=== PATIENT | female | born 1975 | race Caucasian/White ===

== ENCOUNTER 2021-02-06 22:16 | Inpatient (IN) | payer BC, OTHER, SELFPAY ==
[2021-02-06 23:09] LABS: Urine Blood Trace-intact (Negative); Urine Glucose Negative (Negative); Urine Protein 2+ (Negative); Urine Specific Gravity 1.025 (1.005-1.030); Urine pH 6.5 (5.0-7.0)
[2021-02-06 23:17] LABS: Absolute Lymphocytes (CBC) 2.1 K/uL (0.7-4.9); Basophils % 0.4 % (0-1.3); Hematocrit 44.5 % (36.0-45.0); Lymphocytes % 18.6 % (15.3-44.8); MPV 8.8 fL (7.6-11.3); RBC Red Blood Cell Count 4.99 M/uL (3.86-4.86)
[2021-02-06 23:19] LABS: Protime INR 0.94
[2021-02-06 23:28] LABS: Barbiturates NEGATIVE (NEGATIVE); Benzodiazepines NEGATIVE (NEGATIVE); Cocaine NEGATIVE (NEGATIVE); METHAMPHETAM NEGATIVE (NEGATIVE); Methadone NEGATIVE (NEGATIVE); Opiates NEGATIVE (NEGATIVE); Phencyclidine NEGATIVE (NEGATIVE); THC Cannibis NEGATIVE (NEGATIVE)
[2021-02-06 23:54] LABS: Urine Specific Gravity/Preg 1.025 (1.005-1.030)
[2021-02-07 00:05] LABS: ALT/SGPT 20 U/L (12-78); AST/SGOT 15 U/L (15-37); Albumin 3.3 g/dL (3.4-5.0); Alkaline Phosphatase 75 U/L (45-117); BUN Blood Urea Nitrogen 9 mg/dL (7-18); Bicarbonate 25 mmol/L (21-32); Bilirubin Direct < 0.1 mg/dL (0-0.2); Bilirubin Total 0.3 mg/dL (0.2-1.0); Glucose Level 116 mg/dL (74-106); Magnesium 2.4 mg/dL (1.8-2.4); NT PRO-BNP 147 pg/mL (<125); Potassium 3.3 mmol/L (3.5-5.1); Protein, Total 7.3 g/dL (6.4-8.2); Sodium Level 142 mmol/L (136-145); Troponin (Emerg Dept Use Only) < 0.02 ng/mL (0.0-0.045)
[2021-02-07] MEDS ORDERED: POTASS/SODIUM PHOSPHATE 1 PKT POWD.PACK ONE (00:38)
[2021-02-07] MEDS ORDERED: METOPROLOL TARTRATE 5 MG/5 ML INJ IV ONE (01:24)
[2021-02-07] MEDS ORDERED: HYDRALAZINE HCL 20 MG/ML VIAL ONE ×2 (02:12→12:19)
--- NOTE | 2021-02-07 02:48 | ER ---
Nurse's Notes [facility] Name: Kevon Nevarez Age: 45 yrs Sex: Female : 1975 Arrival Date: 02/06/2021 Time: 22:20 Bed 7 Private MD: Diagnosis: Hypertensive Urgency;Paresthesia, Right Side of Body;Hypophosphatemia Presentation: 02/06 22:32 Chief complaint: Patient states: "My whole right side is numb since I woke up this lp1 morning"; Reports numbness, tingling feeling to right side that began at 0930; Denies chest pain, dizziness, vision changes. Coronavirus screen: At this time, the client does not indicate any symptoms associated with coronavirus-19. Ebola Screen: No symptoms or risks identified at this time. Initial Sepsis Screen: Does the patient meet any 2 criteria? No. Patient's initial sepsis screen is negative. Does the patient have a suspected source of infection? No. Patient's initial sepsis screen is negative. Risk Assessment: Do you want to hurt yourself or someone else? Patient reports no desire to harm self or others. Onset of symptoms was February 06, 2021 at 09:30. 22:32 Method Of Arrival: Ambulatory lp1 22:32 Acuity: ILIR 2 lp1 Triage Assessment: 02/07 04:54 General: Appears in no apparent distress. Behavior is calm, cooperative. 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 - Social history:: Smoking status: Patient denies any tobacco usage or history of. Screenin:37 Abuse screen: Denies threats or abuse. Denies injuries from another. Nutritional lp1 screening: No deficits noted. Tuberculosis screening: No symptoms or risk factors identified. Fall Risk None identified. Assessment: 22:50 General: Reports " I woke up with pins and needle feeling on my right side. I took some tw5 ibuprofen this morning, but it didn't help. I cannot go to work feeling like this." NIHSS 0. Pain: Denies pain. Neuro: Level of Consciousness is awake, alert, obeys commands, Oriented to person, place, time, situation, Drug Abuse Social Worker are equal bilaterally Moves all extremities. Gait is steady, Speech is normal, Facial symmetry appears normal, Pupils are PERRLA. Respiratory: Airway is patent Trachea midline Respiratory effort is even, unlabored, Respiratory pattern is regular. 22:50 Cardiovascular: Capillary refill < 3 seconds is brisk is sluggish in left in bilateral. tw5 23:31 Reassessment: Patient appears in no apparent distress at this time. No changes from tw5 previously documented assessment. " I almost feel like the tingling is subsiding". 02/07 00:42 Reassessment: Patient states feeling better. Patient states symptoms have improved. tw5 01:15 Reassessment: Reports numbness decreasing right side of body except right ear cc4 reportedly remains numb; BP 168/[address] Wright notified with Lopressor 5 mg given IVP as ordered. SR with no ectopy; VR 70's. 01:30 Reassessment: Resting quietly; BP 168/99. cc4 01:35 Reassessment: To CT via stretcher. cc4 01:50 Reassessment: Patient appears in no apparent distress at this time. Returned from CT cc4 via stretcher; Up \\T\\ ambulatory to BR with steady gait to void. 02:04 Reassessment: Resting quietly on stretcher; BP 169/116; Dr. Wright notified with cc4 hydralazine 10 mg given IVP as ordered. 02:30 Reassessment: Patient appears in no apparent distress at this time. BP decreasing cc4 152/100. 03:23 Derm: Skin is flushed. tw5 04:58 Reassessment: Patient states feeling better. Patient states symptoms have improved. tw5 General: Reports. Vital Signs: 02/06 22:22 BP 230 / 141; Pulse 94; Resp 20 S; Pulse Ox 98% on R/A; cc4 22:32 BP 230 / 141; Pulse 92; Resp 18; Temp 98; Pulse Ox 99% on R/A; Weight 74.84 kg (R); lp1 Height 5 ft. 6 in. (167.64 cm); Pain 0/10; 22:45 BP 196 / 117; Pulse 85; Resp 20 S; Pulse Ox 98% on R/A; cc4 22:50 BP 196 / 117; Pulse 95; Resp 28; Pulse Ox 99% on R/A; tw5 23:31 BP 203 / 115 LA; tw5 23:31 BP 182 / 110 RA; tw5 02/07 00:42 BP 156 / 101; Pulse 104; Resp 14; Pulse Ox 98% on R/A; tw5 01:25 BP 168 / 115; Pulse 73; Resp 18 S; Pulse Ox 97% on R/A; cc4 01:30 BP 168 / 99; Pulse 67; Resp 18 S; Pulse Ox 97% on R/A; cc4 02:04 BP 169 / 116; Pulse 73; Resp 20 S; Pulse Ox 99% on R/A; cc4 02:15 BP 173 / 104; Pulse 69; Resp 20 S; Pulse Ox 98% on R/A; cc4 02:30 BP 152 / 100; Pulse 70; Resp 18 S; Pulse Ox 98% on R/A; cc4 03:23 BP 173 / 102; Pulse 77; Resp 18; Pulse Ox 98% on R/A; tw5 04:58 BP 167 / 109; Pulse 88; Resp 18; Pulse Ox 100% on R/A; tw5 02/06 22:32 Body Mass Index 26.63 (74.84 kg, 167.64 cm) lp1 ED Course: 02/06 22:20 Patient arrived in ED. ja2 22:26 Kelly Cortes is Primary Nurse. tw5 22:28 Bradley Wright MD is Attending Physician. mh7 22:34 Triage completed. lp1 22:34 Arm band placed on. lp1 22:37 Patient has correct armband on for positive identification. Placed in gown. Call light lp1 in reach. monitoring tech on. Pulse ox on. NIBP on. 22:50 Door closed. Noise minimized. Lights dimmed. Moved to private room. Warm blanket given. tw5 Verbal reassurance given. 22:50 Initial lab(s) drawn, by me, sent to lab. Inserted saline lock: 20 gauge in right tw5 antecubital area, using aseptic technique. Blood collected. 22:56 XRAY Chest (1 view) In Process Unspecified. EDMS 22:57 Assisted to bathroom. tw5 22:57 EKG done, by ED staff, reviewed by Bradley Wright MD. tw5 23:36 CT Head C Spine In Process Unspecified. EDMS 02/07 01:33 CT Neck Angio Sent. cc4 01:33 CT Head Angio Sent. cc4 01:47 Patient moved back from CT. tw5 01:47 ambulating. tw5 01:47 Assisted to bathroom. tw5 02:01 CT Head Angio In Process Unspecified. EDMS 02:01 CT Neck Angio In Process Unspecified. EDMS 02:45 Claudine Velez MD is Hospitalizing Provider. 7 02:51 Awaiting bed assignment. tw5 03:22 COVID-19 SARS RT PCR (Document "Date of Onset" if Symptomatic) Sent. tw5 04:59 No provider procedures requiring assistance completed. Patient admitted, IV remains in tw5 place. Administered Medications: 00:42 Drug: Potassium \\T\\ Sodium Phosphates Packet 280 mg-160 mg-250 mg 1 packets Route: PO; tw5 03:23 Follow up: Response: No adverse reaction tw5 01:25 Drug: Lopressor (metoprolol) 5 mg Route: IVP; Site: right antecubital; cc4 01:30 Follow up: Response: No adverse reaction; Blood pressure is lowered cc4 02:04 Drug: hydrALAZINE 10 mg Route: IVP; Site: right antecubital; cc4 02:30 Follow up: Response: No adverse reaction; Blood pressure is lowered cc4 03:40 Drug: Benadryl (diphenhydrAMINE) 25 mg Route: IVP; Site: right antecubital; tw5 04:56 Follow up: Response: No adverse reaction tw5 Outcome: 02:47 Decision to Hospitalize by Provider. mh7 04:59 Admitted to ER Hold. Please see [facility] for further documentation. tw5 04:59 Condition: good 04:59 Instructed on the need for admit. 12:52 Patient left the ED. jd3 Signatures: Dispatcher [employer] EDMS Prudence Dougherty RN RN lp1 Broderick Rueda RN RN jd3 Bradely Wright MD MD 7 Toyin Fontenot [facility] Aga Borjas RN RN cc4 Kelly Cortes tw5
--- NOTE | 2021-02-07 02:48 | EDPHYS ---
Physician Documentation [facility] Name: Kevon Nevarez Age: 45 yrs Sex: Female : 1975 Arrival Date: 02/06/2021 Time: 22:20 Bed 7 Private MD: ED Physician Bradley Wright HPI: 02/06 23:02 This 45 yrs old Female presents to ER via Ambulatory with complaints of Numbness. mh7 23:02 The patient's problem is reported as paresthesias, in right upper extremity, in right mh7 lower extremity, in right side of face. Onset: The symptoms/episode began/occurred this morning, today, at 09:30. Duration: The episode is continuous. Context: the episode(s) was witnessed, by no one, symptoms became apparent upon waking, occurred at home, occurred while the patient was lying down, Possible contributing factors include: Unknown. The symptoms are alleviated by nothing. The symptoms are aggravated by nothing. Associated signs and symptoms: Pertinent negatives: abdominal pain, agitation, ataxia, blurred vision, chest pain, combativeness, confusion, diaphoresis, diarrhea, dizziness, headache, lightheadedness, nausea, palpitations, seizure, shortness of breath, vertigo, vomiting, weakness. Severity of symptoms: At their worst the symptoms were mild today, in the emergency department the symptoms are unchanged. Patient's baseline: Neuro: alert and fully oriented, Motor: no deficits, Ambulation: walks without assistance, Speech: normal. 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 - Social history:: Smoking status: Patient denies any tobacco usage or history of. ROS: 23:02 Constitutional: Negative for fever, chills, and weight loss, Eyes: Negative for injury, mh7 pain, redness, and discharge, ENT: Negative for injury, pain, and discharge, Neck: Negative for injury, pain, and swelling, Cardiovascular: Negative for chest pain, palpitations, and edema, Respiratory: Negative for shortness of breath, cough, wheezing, and pleuritic chest pain, Abdomen/GI: Negative for abdominal pain, nausea, vomiting, diarrhea, and constipation, Back: Negative for injury and pain, : Negative for injury, bleeding, discharge, and swelling, MS/Extremity: Negative for injury and deformity, Skin: Negative for injury, rash, and discoloration, Psych: Negative for depression, anxiety, suicide ideation, homicidal ideation, and hallucinations, Allergy/Immunology: Negative for hives, rash, and allergies, Endocrine: Negative for neck swelling, polydipsia, polyuria, polyphagia, and marked weight changes, Hematologic/Lymphatic: Negative for swollen nodes, abnormal bleeding, and unusual bruising. Exam: 23:02 Head/Face: Normocephalic, atraumatic. Eyes: Pupils equal round and reactive to light, mh7 extra-ocular motions intact. Lids and lashes normal. Conjunctiva and sclera are non-icteric and not injected. Cornea within normal limits. Periorbital areas with no swelling, redness, or edema. Neck: Trachea midline, no thyromegaly or masses palpated, and no cervical lymphadenopathy. Supple, full range of motion without nuchal rigidity, or vertebral point tenderness. No Meningismus. Chest/axilla: Normal chest wall appearance and motion. Nontender with no deformity. No lesions are appreciated. Cardiovascular: Regular rate and rhythm with a normal S1 and S2. No gallops, murmurs, or rubs. Normal PMI, no JVD. No pulse deficits. Respiratory: Lungs have equal breath sounds bilaterally, clear to auscultation and percussion. No rales, rhonchi or wheezes noted. No increased work of breathing, no retractions or nasal flaring. Abdomen/GI: Soft, non-tender, with normal bowel sounds. No distension or tympany. No guarding or rebound. No evidence of tenderness throughout. Back: No spinal tenderness. No costovertebral tenderness. Full range of motion. Skin: Warm, dry with normal turgor. Normal color with no rashes, no lesions, and no evidence of cellulitis. MS/ Extremity: Pulses equal, no cyanosis. Neurovascular intact. Full, normal range of motion. Psych: Awake, alert, with orientation to person, place and time. Behavior, mood, and affect are within normal limits. 23:02 Constitutional: The patient appears in no acute distress, alert, awake, anxious. 23:02 Neuro: Orientation: is normal, Mentation: is normal, Memory: is normal, Cranial nerves: grossly normal, Cerebellar function: is grossly normal, Motor: is normal, Sensation: is normal, Gait: is steady, at a normal pace, without difficulty, Deep tendon reflexes are normal, Babinski testing is normal, seizure activity, is not displayed by the patient, Abnormal movements: there are no abnormal movements. 02/07 02:47 Radiologist reports: No acute findings [facility] Vital Signs: 02/06 22:22 BP 230 / 141; Pulse 94; Resp 20 S; Pulse Ox 98% on R/A; cc4 22:32 BP 230 / 141; Pulse 92; Resp 18; Temp 98; Pulse Ox 99% on R/A; Weight 74.84 kg (R); lp1 Height 5 ft. 6 in. (167.64 cm); Pain 0/10; 22:45 BP 196 / 117; Pulse 85; Resp 20 S; Pulse Ox 98% on R/A; cc4 22:50 BP 196 / 117; Pulse 95; Resp 28; Pulse Ox 99% on R/A; tw5 23:31 BP 203 / 115 LA; tw5 23:31 BP 182 / 110 RA; tw5 02/07 00:42 BP 156 / 101; Pulse 104; Resp 14; Pulse Ox 98% on R/A; tw5 01:25 BP 168 / 115; Pulse 73; Resp 18 S; Pulse Ox 97% on R/A; cc4 01:30 BP 168 / 99; Pulse 67; Resp 18 S; Pulse Ox 97% on R/A; cc4 02:04 BP 169 / 116; Pulse 73; Resp 20 S; Pulse Ox 99% on R/A; cc4 02:15 BP 173 / 104; Pulse 69; Resp 20 S; Pulse Ox 98% on R/A; cc4 02:30 BP 152 / 100; Pulse 70; Resp 18 S; Pulse Ox 98% on R/A; cc4 03:23 BP 173 / 102; Pulse 77; Resp 18; Pulse Ox 98% on R/A; tw5 04:58 BP 167 / 109; Pulse 88; Resp 18; Pulse Ox 100% on R/A; tw5 02/06 22:32 Body Mass Index 26.63 (74.84 kg, 167.64 cm) lp1 MDM: 02:44 Differential diagnosis: CVA, TIA, metabolic disorder, drug effects. Data reviewed: [facility] vital signs, nurses notes, lab test result(s), cardiac enzymes, CBC, electrolytes, EKG, radiologic studies, CT scan, plain films. Data interpreted: Pulse oximetry: on room air is 98 %. Interpretation: normal. Counseling: I had a detailed discussion with the patient and/or guardian regarding: the historical points, exam findings, and any diagnostic results supporting the discharge/admit diagnosis, the presence of at least one elevated blood pressure reading (>120/80) during this emergency department visit, lab results, radiology results, the need for further work-up and treatment in the hospital. Response to treatment: the patient's symptoms have mildly improved after treatment. 02:47 Patient medically screened. [facility] 02/06 22:42 Order name: Basic Metabolic Panel; Complete Time: 00:05 [facility] 02/06 22:42 Order name: CBC with Diff; Complete Time: 23:37 [facility] 02/06 22:42 Order name: LFT's; Complete Time: 00:05 [facility] 02/06 22:42 Order name: Magnesium; Complete Time: 00:05 [facility] 02/06 22:42 Order name: NT PRO-BNP; Complete Time: 00:05 [facility] 02/06 22:42 Order name: PT-INR; Complete Time: 23:37 [facility] 02/06 22:42 Order name: Troponin (emerg Dept Use Only); Complete Time: 00:05 [facility] 02/06 22:42 Order name: UDS; Complete Time: 23:37 [facility] 02/06 22:42 Order name: ETOH Level; Complete Time: 23:59 [facility] 02/06 22:43 Order name: Phosphorus; Complete Time: 00:05 [facility] 02/06 23:09 Order name: Urine Dipstick-Ancillary; Complete Time: 23:12 EDMS 02/06 23:10 Order name: Urine --Ancillary (enter results); Complete Time: 23:54 ds4 02/07 02:51 Order name: COVID-19 SARS RT PCR (Document "Date of Onset" if Symptomatic) 1 02/07 02:52 Order name: SARS-COV-2 RT PCR [facility] 02/06 22:42 Order name: XRAY Chest (1 view) [facility] 02/06 22:43 Order name: CT Head C Spine [facility] 02/07 01:22 Order name: CT Head Angio [facility] 02/07 01:22 Order name: CT Neck Angio [facility] 02/07 05:57 Order name: Comprehensive Metabolic Panel [facility] 02/07 05:57 Order name: Phosphorus [facility] 02/07 05:57 Order name: Troponin I [facility] 02/07 05:57 Order name: Lipid Profile [facility] 02/07 05:57 Order name: T4 Free [facility] 02/07 05:57 Order name: Thyroid Stimulating Hormone [facility] 02/07 09:59 Order name: MRI [facility] 02/07 10:02 Order name: MRI [facility] 02/07 10:04 Order name: MRI [facility] 02/06 22:42 Order name: EKG; Complete Time: 22:43 [facility] 02/06 22:42 Order name: Cardiac monitoring; Complete Time: 22:58 [facility] 02/06 22:42 Order name: EKG - Nurse/Tech; Complete Time: 22:58 [facility] 02/06 22:42 Order name: IV Saline Lock; Complete Time: 22:58 [facility] 02/06 22:42 Order name: Labs collected and sent; Complete Time: 22:58 [facility] 02/06 22:42 Order name: O2 Per Protocol; Complete Time: 22:58 [facility] 02/06 22:42 Order name: O2 Sat Monitoring; Complete Time: 22:58 [facility] 02/06 22:42 Order name: Urine Dipstick-Ancillary (obtain specimen); Complete Time: 23:10 [facility] 02/06 22:42 Order name: Urine Test (obtain specimen); Complete Time: 23:09 [facility] 02/07 02:50 Order name: CONS Physician Consult [facility] Administered Medications: 00:42 Drug: Potassium \\T\\ Sodium Phosphates Packet 280 mg-160 mg-250 mg 1 packets Route: PO; tw5 03:23 Follow up: Response: No adverse reaction tw5 01:25 Drug: Lopressor (metoprolol) 5 mg Route: IVP; Site: right antecubital; cc4 01:30 Follow up: Response: No adverse reaction; Blood pressure is lowered cc4 02:04 Drug: hydrALAZINE 10 mg Route: IVP; Site: right antecubital; cc4 02:30 Follow up: Response: No adverse reaction; Blood pressure is lowered cc4 03:40 Drug: Benadryl (diphenhydrAMINE) 25 mg Route: IVP; Site: right antecubital; tw5 04:56 Follow up: Response: No adverse reaction tw5 Disposition Summary: 02/07/21 02:47 Hospitalization Ordered Hospitalization Status: Inpatient Admission [facility] Provider: Claudine Velez Pamela Condition: Stable mh7 Problem: new mh7 Symptoms: have improved mh7 Bed/Room Type: Standard [facility] Location: Telemetry/MedSurg (Inpatient)(02/07/21 10:58) [facility] Room Assignment: [facility](02/07/21 10:58) [facility] Diagnosis - Hypertensive Urgency mh7 - Paresthesia, Right Side of Body mh7 - Hypophosphatemia [facility] Forms: - Medication Reconciliation Form mh7 - SBAR form 7 Signatures: Dispatcher [employer] EDPrudence Tang RN RN lp1 Chelsey Kidd RN RN Kojo Oconnor RN RN ja1 Bradley Wright MD MD 7 Aga Borjas RN RN cc4 Kelly Cortes tw5 Corrections: (The following items were deleted from the chart) 03:07 02:47 Telemetry/MedSurg (Inpatient) 7 cg 03:07 02:47 mh7 cg 10:58 03:07 [facility] ER HOLD cg ja1 10:58 03:07 ERHOLD- cg ja1
[2021-02-07] MEDS ORDERED: DIPHENHYDRAMINE 50 MG/ML VIAL ONE (03:37)
--- NOTE | 2021-02-07 03:58 | P.HP ---
Certification for Inpatient Patient admitted to: Inpatient With expected LOS: <2 Midnights Patient will require the following post-hospital care: None Practitioner: I am a practitioner with admitting privileges, knowledge of patient current condition, hospital course, and medical plan of care. Services: Services provided to patient in accordance with Admission requirements found in Title 42 Section 412.3 of the Code of Federal Regulations Patient History Date of Service: 02/07/21 Primary Care Provider: Ching Reason for admission: hypertensive emergency History of Present Illness: Ms. Nevarez is a 45 yo F with HTN who presents with right sided numbness (face, neck, arm, leg) when she woke up at 9:30pm. She says she almost felt walking to the bathroom. She reports nausea and blurry vision. Denies headache, vomiting, chest pain. WBC 11.5 K 3.3 Phos 2.0 BNP 147. BP was 230/141 upon arrival. - Past Medical/Surgical History Diabetic: No -: HTN -: appendectomy -: rhinoplasty - Family History Father -: Hypertension - Social History Smoking Status: Never smoker Alcohol use: Yes CD- Drugs: No Caffeine use: No Place of Residence: Home Review of Systems 10-point ROS is otherwise unremarkable General: Unremarkable Eyes: Vision Change ENT: Unremarkable Respiratory: Unremarkable Cardiovascular: Unremarkable Gastrointestinal: Nausea Genitourinary: Unremarkable Musculoskeletal: Unremarkable Integumentary: Unremarkable Neurological: Numbness Lymphatics: Unremarkable Physical Examination - Physical Exam General: Alert, In no apparent distress HEENT: Atraumatic, PERRLA, Mucous membr. moist/pink, EOMI, Sclerae nonicteric Neck: Supple, 2+ carotid pulse no bruit, No LAD, Without JVD or thyroid abnormality Respiratory: Clear to auscultation bilaterally, Normal air movement Cardiovascular: Regular rate/rhythm, Normal S1 S2 Gastrointestinal: Normal bowel sounds, No tenderness Musculoskeletal: No tenderness Integumentary: No rashes Neurological: Normal gait, Normal speech, Normal strength at 5/5 x4 extr, Normal tone, Normal affect, Abnormal sensation Lymphatics: No axilla or inguinal lymphadenopathy - Studies Laboratory Data (last 24 hrs) 02/06/21 23:27: Sodium 142, Potassium 3.3 L, BUN 9, Creatinine 0.70, Glucose 116 H, Phosphorus 2.0 L, Magnesium 2.4, Total Bilirubin 0.3, AST 15, ALT 20, Alkaline Phosphatase 75 02/06/21 22:50: PT 10.8, INR 0.94 02/06/21 22:50: WBC 11.50 H, Hgb 15.2 H, Hct 44.5, Plt Count 275 Assessment and Plan - Problems (Diagnosis) (1) Hypertensive emergency Current Visit: Yes Status: Acute (2) Right sided numbness Current Visit: Yes Status: Acute - Plan neurology consulted MRI in the AM continue IV hydralazine, reconcile and continue home dose of enalapril daily ASA, folic acid, statin lipid and thyroid panel pending electrolyte replacement trend troponins DVT ppx Discharge Plan: Home Plan to discharge in: 24 Hours - Advance Directives Does patient have a Living Will: No Does patient have a Durable POA for Healthcare: No - Code Status/Comfort Care Code Status Assessed: Yes (full code ) Critical Care: No Time Spent Managing Pts Care (In Minutes): 70
[2021-02-07] MEDS ORDERED: ACETAMINOPHEN 500 MG TAB PO PRN (05:05)
[2021-02-07] MEDS ORDERED: ONDANSETRON 4 MG/2 ML VIAL IV PRN (05:05)
[2021-02-07 05:13] VITALS: BMI 26.3
[2021-02-07 05:57] LABS: ALT/SGPT 19 U/L (12-78); AST/SGOT 14 U/L (15-37); Albumin 3.3 g/dL (3.4-5.0); Alkaline Phosphatase 76 U/L (45-117); BUN Blood Urea Nitrogen 6 mg/dL (7-18); Bicarbonate 24 mmol/L (21-32); Bilirubin Total 0.5 mg/dL (0.2-1.0); Glucose Level 97 mg/dL (74-106); HDL Cholesterol 55 mg/dL (40-60); LDL Cholesterol, Calculated 91 (<130); Phosphorus 2.1 mg/dL (2.5-4.9); Potassium 3.2 mmol/L (3.5-5.1); Protein, Total 7.2 g/dL (6.4-8.2); Sodium Level 142 mmol/L (136-145); Troponin I < 0.02 ng/mL (0.0-0.045)
[2021-02-07] MEDS ORDERED: ASPIRIN EC 81 MG TAB PO ONE (08:48)
[2021-02-07] MEDS ORDERED: ENOXAPARIN 40 MG/0.4 ML SQ ONE (08:48)
[2021-02-07] MEDS ORDERED: ENALAPRIL 2.5 MG TAB ONE (08:48)
[2021-02-07] MEDS ORDERED: FOLIC ACID 1 MG TABLET ONE (08:48)
[2021-02-07] MEDS: ENALAPRIL 10 MG TAB PO SCH (09:00)
[2021-02-07] MEDS: ENOXAPARIN 40 MG/0.4 ML SQ SCH (09:00)
[2021-02-07] MEDS: ASPIRIN EC 81 MG TAB PO SCH (09:00)
[2021-02-07] MEDS: FOLIC ACID 1 MG TABLET PO SCH (09:00)
--- NOTE | 2021-02-07 09:58 | RAD REPORT ---
EXAM DESCRIPTION: MRI - MRA Head Wo Cont - 02/07/2021 8:52 am CLINICAL HISTORY: Right-sided weakness, stroke-like symptoms COMPARISON: CT head February 06 TECHNIQUE: Axial and coronal 3D [id number] image acquisition was performed. 3D rotational images were generated with source and reconstruction images reviewed. Horizontal and vertical axis rotation al views generated using MIP protocol. FINDINGS: No aneurysm or vascular malformation identified. Mild tortuosity of the distal vertebral a rteries are noted with no stenosis or dissection. No focal basilar finding. The distal internal carot id arteries show no dissection or significant atherosclerotic disease. The anterior and middle cerebral artery distribution show no named branch occlusion, vasculitis or si gnificant atherosclerotic finding. Patient has large bilateral posterior communicating arteries as a normal anatomic variant. This supplies all or most of the bilateral posterior cerebral artery circula tion. No significant posterior cerebral artery finding. IMPRESSION: As detailed above, MRA Head imaging shows no significant finding.
--- NOTE | 2021-02-07 10:01 | RAD REPORT ---
EXAM DESCRIPTION: MRI - Brain W/Wo Cont - 02/07/2021 9:24 am CLINICAL HISTORY: R side numbness COMPARISON: MRA Head Wo Cont dated 02/07/2021; MRA Neck W/Wo Cont dated 02/07/2021 TECHNIQUE: Sagittal and axial T1-weighted images were obtained. Axial PD/heavily T2-weighted and T2- FLAIR images were obtained along with axial DWI/ADC mapping sequences. Coronal heavily T2 weighted s equence obtained. Axial and coronal post-contrast T1-weighted images were also obtained. A 17 ml Mul tihance contrast following utilized. FINDINGS: No intracranial hemorrhage is present. No mass, edema or shift of midline structures. In t he posterior left mauricio there is a 7 millimeter area of abnormal diffusion signal with corresponding d iminished signal on ADC mapping. This is a subacute nonhemorrhagic infarction. No other brainstem, ba caleb ganglia or thalamus diffusion abnormality seen. Cerebral and cerebellar hemispheres are clear of any acute disease. Patient has no underlying atrophy or chronic ischemic change. There is no edema or shift of midline structures. No extra-axial fluid collections. Morley-matter/white matter junction is preserved. Signal voids are seen as a normal finding in the major intracranial vessels. Post-contrast images show normal enhancement. No dural thickening. Mastoid air cells are clear. No air-fluid level in the paranasal sinuses. IMPRESSION: Subacute nonhemorrhagic 7 millimeter sized infarction in the posterior left mauricio.
--- NOTE | 2021-02-07 10:03 | RAD REPORT ---
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 Coronal imaging plane acquisition u tilized. A 17 MultiHance contrast volume was utilized. Coronal reformatted images were generated and reviewed. Vertical axis 3D rotational projections obtained using maximum intensity projection protoco l. FINDINGS: Aortic arch is 3 vessel configuration with no origins stenosis. No vertebral artery stenos is at the origin. There is tortuosity of the proximal left vertebral artery. Codominant vertebral art eries show mild tortuosity but no stenosis or dissection. Tortuosity is more pronounced near the vert ebrobasilar junction. Bilateral common carotid and internal carotid arteries show no significant finding. IMPRESSION: Unremarkable MRA neck examination.
[2021-02-07] MEDS: HYDRALAZINE HCL 20 MG/ML VIAL IV PRN ×2 (12:37→16:09)
--- NOTE | 2021-02-07 14:20 | RAD REPORT ---
EXAM DESCRIPTION: CT - CTHCSPWOC - 02/07/2021 6:40 am CLINICAL HISTORY: 45 years, Female, NUMBNESS/TINGLING COMPARISON: None. FINDINGS: Multiple transaxial tomograms of the brain were obtained from the base of the skull to the vertex without contrast. 2-D multiplanar reformats and the coronal and sagittal plane were performed and reviewed. This exam was performed according to our departmental dose-optimization protocol, which includes auto mated exposure control, adjustment of the mA and/or kV according to patient size and/or use of iterat sondra reconstruction technique. CT head: Brain parenchyma as well as the zavala and white matter differentiation demonstrate to be unre markable. There is no midline shift and/or mass effect. There is no evidence for acute hemorrhage and /or infarction. Lateral ventricles and cisterns displace normal appearance. No intra or extra axi al fluid collections were seen. The calvarium is intact with no evidence for fracture. The visualized portions of the paranasal sinuses and orbits demonstrate to be clear. CT C-spine: The alignment, vertebral body heights, and disc spaces are normal. There is no evidence of fracture or subluxation. There is very minimal anterior spondylosis at C6/C7 with very minimal de generative disc disease.. The spinal canal demonstrate no evidence for significant stenosis. Neural f oramina demonstrate to be unremarkable. The uncovertebral joints demonstrate to be normal. There is n o prevertebral soft tissue swelling. The visualized portions of the lung apices demonstrate to be u nremarkable. Sagittal coronal reformatted images demonstrate no subluxation or bony abnormalities. IMPRESSION: No acute intracranial abnormalities noted. No evidence for fracture or subluxation of the cervical spine. Very minimal anterior spondylosis and very minimal degenerative disc disease C6/C7. Electronically signed by: Mendoza Quintero MD 02/06/2021 11:49 PM MANUFACTURING TEAM LEADER Due to temporary technical issues with the PACS/Fluency reporting system, reports are being signed by the in house radiologist without review as a courtesy to ensure prompt reporting. The interpreting r adiologist is fully responsible for the content of the report.
--- NOTE | 2021-02-07 14:21 | RAD REPORT ---
EXAM DESCRIPTION: CT - Head angio - 02/07/2021 6:41 am CLINICAL HISTORY: 45 years Female NUMBNESS. Tingling along right side of body all day. TECHNIQUE: Following dynamic intravenous nonionic contrast infusion, multiple axial helical CT image s with multiplanar reconstructions were obtained through the head and neck. Coronal and sagittal MIP images were performed. The CT study is performed according to ALARA (as low as reasonably achievable) or ALARA/IMAGE GENTLY, with automatic adjustment of mA and/or kV according to patient size. Performed on: 02/07/2021 at 1:48 AM COMPARISON: CT head performed on 02/06/2021 FINDINGS: CTA NECK: AORTA: The aortic arch is well imaged and demonstrates conventional branching. The origins of the left sub clavian artery, left common carotid artery and innominate artery are patent. VERTEBRAL ARTERIES: The LEFT vertebral artery is normal in caliber and contour without evidence of dissection or signific ant stenosis. The RIGHT vertebral artery is normal in caliber and contour without evidence of dissection or signifi cant stenosis. CAROTID ARTERIES: The LEFT common carotid artery is unremarkable. There is no evidence of stenosis, dissection or occlu nicole The carotid bulb demonstrates no significant plaque. The LEFT internal carotid artery is elvia l in caliber and contour without evidence of significant stenosis, dissection or occlusion. The LEFT external carotid artery is unremarkable. The RIGHT common carotid artery is unremarkable. There is no evidence of stenosis, dissection or occl usion. The carotid bulb demonstrates no significant plaque. The RIGHT internal carotid artery is un remarkable. There is no evidence of stenosis, dissection or occlusion. The RIGHT external carotid art venus is unremarkable. CTA HEAD: LEFT: INTERNAL CAROTID ARTERY: The distal internal carotid artery is unremarkable. ANTERIOR CEREBRAL ARTERY: The A1 segment is normal in caliber and contour. The A2 segment is normal in caliber and contour. The region of the anterior communicating artery is unremarkable. MIDDLE CEREBRAL ARTERY: The M1 segment is normal in caliber and contour. The M2 branches are normal in caliber and contour. POSTERIOR CEREBRAL ARTERY: The P1 segment is hypoplastic. There is a origin of the left speech professor ior cerebral artery. The P2 segment is normal in caliber and contour. VERTEBRAL ARTERY: The intradural left vertebral artery is normal in caliber and contour. RIGHT: INTERNAL CAROTID ARTERY: The distal internal carotid artery is unremarkable. ANTERIOR CEREBRAL ARTERY: The A1 segment is normal in caliber and contour. The A2 segment is normal in caliber and contour. MIDDLE CEREBRAL ARTERY: The M1 segment is normal in caliber and contour. The M2 branches are normal in caliber and contour. POSTERIOR CEREBRAL ARTERY: The P1 segment is hypoplastic. There is a origin of the right poste rior cerebral artery. The P2 segment is normal in caliber and contour. VERTEBRAL ARTERY: The intradural right vertebral artery is normal in caliber and contour. BASILAR ARTERY: The basilar artery is normal in caliber and contour. DURAL VENOUS SINUSES: The dural venous sinuses are patent. NON-ANGIOGRAPHIC FINDINGS: The lung apices are clear. The thyroid gland is unremarkable. No acute osseous abnormalities are iden tified. There are periapical cysts and/or abscesses involving the left maxillary lateral incisor and right maxillary first molar. The paranasal sinuses and mastoid air cells are clear. The middle air ca vities are clear. The orbital contents are unremarkable. IMPRESSION: CTA NECK: 1. Normal CTA of the neck. There is no evidence of stenosis as per the NASCET criteria. CTA HEAD: 1. There are origins of both posterior cerebral arteries with hypoplasia of the P1 segments. 2. Otherwise, normal intracranial CTA. There is no evidence of large vessel occlusion, significant st enosis, aneurysm or other vascular malformation. 3. Periapical cysts and/or abscesses involving the left maxillary lateral incisor and right maxillary first molar. Correlate clinically. These critical findings were discussed with Dr. Wright on 02/07/2021 at 2:19 AM central time. Electronically signed by: Barby Ashton DO 02/07/2021 2:26 AM LAWN CARE SPECIALIST Due to temporary technical issues with the PACS/Fluency reporting system, reports are being signed by the in house radiologist without review as a courtesy to ensure prompt reporting. The interpreting r adiologist is fully responsible for the content of the report.
--- NOTE | 2021-02-07 14:40 | RAD REPORT ---
EXAM DESCRIPTION: RAD - Chest Single View - 02/06/2021 10:56 pm CLINICAL HISTORY: 5 years Female, Hypertensive COMPARISON: None FINDINGS: No focal lung consolidation. No pleural effusion. No pneumothorax. Cardiomediastinal silhouette is within normal limits. No acute osseous abnormality. IMPRESSION: No acute cardiopulmonary disease. Electronically signed by: Herbert Henry DO 02/06/2021 11:35 PM RETAIL MANAGEMENT TRAINEE Due to temporary technical issues with the PACS/Fluency reporting system, reports are being signed by the in house radiologist without review as a courtesy to ensure prompt reporting. The interpreting r adiologist is fully responsible for the content of the report.
--- NOTE | 2021-02-07 18:41 | P.PN ---
Subjective Date of Service: 02/07/21 Patient blood pressure better controlled. MRI is pending Review of Systems 10-point ROS is otherwise unremarkable Physical Examination - Vital Signs Temperature: 98.1 F Blood Pressure: 159/90 Pulse: 94 Respirations: 16 Pulse Ox (%): 95 - Physical Exam General: Alert, In no apparent distress, Oriented x3 HEENT: Atraumatic, PERRLA, EOMI Neck: Supple, JVD not distended Respiratory: Clear to auscultation bilaterally, Normal air movement Cardiovascular: Regular rate/rhythm, Normal S1 S2 Gastrointestinal: Normal bowel sounds, No tenderness Musculoskeletal: No tenderness Integumentary: No rashes Neurological: Normal speech, Normal tone, Normal affect, Abnormal sensation Lymphatics: No axilla or inguinal lymphadenopathy - Studies Laboratory Data (last 24 hrs) 02/06/21 23:27: Sodium 142, Potassium 3.3 L, BUN 9, Creatinine 0.70, Glucose 116 H, Phosphorus 2.0 L, Magnesium 2.4, Total Bilirubin 0.3, AST 15, ALT 20, Alkaline Phosphatase 75 02/06/21 22:50: PT 10.8, INR 0.94 02/06/21 22:50: WBC 11.50 H, Hgb 15.2 H, Hct 44.5, Plt Count 275 Medications List Reviewed: Yes Assessment & Plan - Problems (Diagnosis) (1) Hypertensive emergency Current Visit: Yes Status: Acute (2) Right sided numbness Current Visit: Yes Status: Acute - Plan 1. Strength is appropriate so no need for physical therapy 2. Speech is appropriate and swallowing is appropriate so no need for speech therapy 3. Anti-platelet therapy and statin therapy; pending MRI results 4. Lipid profile in the morning 5. MRI of the brain/echocardiogram/carotid Doppler are pending 6. Physically patient is doing well and may benefit more from outpatient physical therapy and inpatient rehab 7. Neurology consultation appreciated 8. Permissive hypertension and gradual blood pressure control 9. Neuro checks every 4 hr 10. GI and DVT prophylaxis Discharge Plan: Home Plan to discharge in: Greater than 2 days - Advance Directives Does patient have a Living Will: No Does patient have a Durable POA for Healthcare: No - Code Status/Comfort Care Code Status Assessed: Yes Code Status: Full Code Critical Care: No Time Spent Managing PTS Care (In Minutes): 45
[2021-02-07] MEDS ORDERED: METOPROLOL TARTRATE 5 MG/5 ML INJ IV STA (18:44)
[2021-02-07] MEDS: ATORVASTATIN 40 MG TAB PO SCH (20:54)
[2021-02-07] MEDS ORDERED: POTASSIUM 25 MEQ EFFERV TAB PO ONE (20:55)
[2021-02-08 07:16] LABS: Absolute Lymphocytes (CBC) 2.9 K/uL (0.7-4.9); Basophils % 0.5 % (0-1.3); Hematocrit 42.2 % (36.0-45.0); Lymphocytes % 33.8 % (15.3-44.8); MPV 8.5 fL (7.6-11.3); RBC Red Blood Cell Count 4.68 M/uL (3.86-4.86)
[2021-02-08 07:35] LABS: ALT/SGPT 19 U/L (12-78); AST/SGOT 15 U/L (15-37); Albumin 3.3 g/dL (3.4-5.0); Alkaline Phosphatase 69 U/L (45-117); BUN Blood Urea Nitrogen 16 mg/dL (7-18); Bicarbonate 25 mmol/L (21-32); Bilirubin Total 0.6 mg/dL (0.2-1.0); Glucose Level 103 mg/dL (74-106); Magnesium 2.2 mg/dL (1.8-2.4); Phosphorus 2.2 mg/dL (2.5-4.9); Potassium 3.6 mmol/L (3.5-5.1); Protein, Total 6.9 g/dL (6.4-8.2); Sodium Level 143 mmol/L (136-145)
[2021-02-08] MEDS: FOLIC ACID 1 MG TABLET PO SCH (08:32)
[2021-02-08] MEDS: ASPIRIN EC 81 MG TAB PO SCH (08:32)
[2021-02-08] MEDS: ENALAPRIL 10 MG TAB PO SCH (08:33)
[2021-02-08] MEDS: ENOXAPARIN 40 MG/0.4 ML SQ SCH (08:33)
[2021-02-08] MEDS: HYDRALAZINE HCL 20 MG/ML VIAL IV PRN (09:43)
[2021-02-08] MEDS ORDERED: AMLODIPINE 10 MG TAB PO ONE (10:34)
--- NOTE | 2021-02-08 11:54 | EKG ---
Test Date: 2021-02-07 Test Time: 21:43:59 Electric Train Driver: WALLACE MEASUREMENT RESULTS: Intervals: Rate: 88 [place]: 136 QRSD: 74 QT: 372 QTc: 450 [place]: P: 39 AZ: 136 QRS: 27 T: 201 INTERPRETIVE STATEMENTS: Normal sinus rhythm Septal infarct, age undetermined T wave abnormality, consider lateral ischemia Abnormal ECG Compared to ECG 02/06/2021 22:45:01 Myocardial infarct finding now present T-wave abnormality now present Atrial abnormality no longer present Left ventricular hypertrophy no longer present ST (T wave) deviation no longer present Possible ischemia still present Electronically Signed On 02-08-21 11:53:30 LAUNDRY OR [employer]Y CLEANERS COUNTER CLERK by Levi Styles
[2021-02-08] MEDS ORDERED: POTASSIUM CL SA 10 MEQ TAB PO ONE (12:00)
[2021-02-08] MEDS: LORAZEPAM 0.5 MG TABLET PO ONE ×3 (12:47→13:31)
[2021-02-08] MEDS ORDERED: ENALAPRILAT 1.25 MG/ML VIAL IV ONE (12:47)
[2021-02-08] MEDS ORDERED: ENALAPRILAT 1.25 MG/ML VIAL IV PRN (14:57)
--- NOTE | 2021-02-08 19:27 | CON ---
Reason For Consultation: Consultation called because of stroke. History Of Present Illness: Ms. Nevarez is a 45-year-old right-handed patient with uncont rolled hypertension for at least 30 years, who comes with right face, arm and leg numbness. She woke up around 9:30 p.m. on February 06 with her symptoms and had some difficulty with walking due to p oor sensory perception. She was trying to get to the bathroom. She did have nausea, blurred vision, but no shortness of breath. No cough. No chest pain and no weakness. She did not immediately seek medical attention, but eventually came to [facility] on the 06 of February, but at her ar rival time at [facility] was 2220. When she woke up in the morning, it is 9:30 in the morni ng that is a.m. and came to the hospital on 0, well out of the window for any acute treatment for stroke. Her head CT and cervical spine CT scan showed no acute ischemic or hemorrhagic change. No f ractures. There was minimal spondylosis and degenerative disk disease at C6-C7. The patient's defic its persisted and she was admitted for stroke workup. Brain MRI done the following day identified a 7 mm subacute infarct, nonhemorrhagic in the left posterior mauricio, which may explain the patient's rig ht-sided deficits of sensation. Neck MRA is unremarkable. Brain MRA also unremarkable as were her C T angiogram studies of the head and neck. The P1 segment on the left was hypoplastic. The P2 segmen t was of normal caliber. She had blood pressures ranging up to systolics in the 200s range, the high est she was 230 actually and diastolic 141. She is gingerly lowered in terms of her blood pressure n umbers ranging systolics in the 150s to 180s and most recently 169/94. Her deficits have fluctuated a bit but has not resolved. Her blood work showed a normal complete blood count with differential. Basic metabolic panel remarkable for hypokalemia, which is initially down to 3.2, now 3.6 uncorrected . Kidney function otherwise normal. Phosphorus was low at 3.2. Liver function studies normal. LDL cholesterol 91, HDL cholesterol 55. TSH normal. Free T4 normal. Urinalysis showed a trace of bloo d, 3+ protein. Her toxicology screen was negative and her COVID-19 test was negative. She was not t aking aspirin daily and is now placed on aspirin 81 mg daily, folic acid 1 mg daily, Lipitor 40 mg at bedtime. She is on Norvasc 10 mg daily, Cozaar 50 mg twice daily, and hydrochlorothiazide/losartan 50/12.5 daily. She has DVT prophylaxis with Lovenox 40 mg subcutaneously daily. Past Medical History: As noted. Past Surgical History: Appendectomy, rhinoplasty. Family History: Heart attacks in father and paternal grandfather along with hypertension in father. Social History: She was actually drinking alcohol and around folks who were smoking at th e time of the event. She denies smoking herself. No IV drug use. Allergies: CODEINE. Review of Systems: As noted. No recent fevers, chills, nausea, vomiting, myalgias, arthralgias, headaches, weight villagran e, rash, or psychiatric issues. No gastrointestinal or genitourinary issues. Physical Examination: Vital Signs: Blood pressure currently 169/94, pulse 87, respiratory rate 16, temperature 98.1, oxyge n saturation 97%. Weight 163 pounds, height 5 feet 6 inches, BMI 26. General: Ms. Nevarez is resting comfortably. She is in no acute distress. HEENT: She is normocephalic, atraumatic. Sclerae anicteric. Oropharynx pink and moist. Neck: Supple. Chest: Clear. Heart: Regular. Extremities: Show no clubbing, cyanosis, or edema. Neurologic: She is alert and oriented to person, place, time, and situation. She has no expressive or receptive aphasias. Cranial nerves show decrease to light touch in the right face. Her sensation in the right upper and lower extremity decreased compared to the left side. Otherwise, full strengt h in upper and lower extremities. Intact coordination of lower extremities. She does have slight di fficulty with tandem gait, tendency to drift to the right with ambulation. Assessment: Ms. Nevarez is a 45-year-old patient with a left posterior brainstem stroke, likely aff ecting sensory fibers producing her deficits of face, arm and leg numbness on the right side. She martinez s uncontrolled hypertension as the major risk factor. She was not taking an aspirin. Plan: 1.Aspirin 81 mg daily. Also for dyslipidemia we will target LDL of less than 70 with Lipitor 40 mg daily. 2.Folic acid 1 mg daily. 3.Very aggressive management of hypertension over the next few weeks. She should try to lower her b lood pressures with systolics perhaps 120s to 130s, diastolics 70s to 80s. She may be [facility] once blood pressure is better managed and follow up in Dr. Tong's clinic 1 month later . SHAHNAZ Voice ID: [id number] Report ID: [id number]
[2021-02-08] MEDS: POTASS/SODIUM PHOSPHATE 1 PKT POWD.PACK PO SCH ×3 (20:40→22:53)
[2021-02-08] MEDS: ATORVASTATIN 40 MG TAB PO SCH (20:40)
[2021-02-08] MEDS ORDERED: BISACODYL E.C. 5 MG TAB PO ONE (21:00)
[2021-02-08] MEDS: LOSARTAN POTASSIUM 50 MG TABLET PO SCH (21:34)
[2021-02-09 05:30] LABS: BUN Blood Urea Nitrogen 13 mg/dL (7-18); Bicarbonate 25 mmol/L (21-32); Glucose Level 106 mg/dL (74-106); Phosphorus 2.8 mg/dL (2.5-4.9); Potassium 3.6 mmol/L (3.5-5.1); Sodium Level 141 mmol/L (136-145)
[2021-02-09] MEDS: AMLODIPINE 10 MG TAB PO SCH ×2 (07:56→07:58)
[2021-02-09] MEDS: ASPIRIN EC 81 MG TAB PO SCH (07:58)
[2021-02-09] MEDS: LOSARTAN POTASSIUM 50 MG TABLET PO SCH (07:59)
[2021-02-09] MEDS: ENOXAPARIN 40 MG/0.4 ML SQ SCH (07:59)
[2021-02-09] MEDS: FOLIC ACID 1 MG TABLET PO SCH (07:59)
[2021-02-09 08:39] VITALS: O2SAT 97
[2021-02-09] MEDS ORDERED: POTASSIUM 25 MEQ EFFERV TAB PO ONE (09:00)
--- NOTE | 2021-02-09 10:37 | P.PN ---
Date of Service: 02/08/21 Subjective MRI revealed infarct in the left mauricio; continue with gradual blood pressure control Review of Systems 10-point ROS is otherwise unremarkable Physical Examination - Vital Signs Reviewed - Physical Exam General: Alert, In no apparent distress, Oriented x3 Respiratory: Clear to auscultation bilaterally, Normal air movement Cardiovascular: Regular rate/rhythm, Normal S1 S2 Gastrointestinal: Normal bowel sounds, No tenderness Neurological: Normal speech, Normal tone, Normal affect, Abnormal sensation Assessment & Plan - Problems (Diagnosis) (1) Hypertensive emergency Current Visit: Yes Status: Acute (2) Right sided numbness Current Visit: Yes Status: Acute - Plan Continue with plan of care as mentioned below: 1. Strength is appropriate so no need for physical therapy 2. Speech is appropriate and swallowing is appropriate so no need for speech therapy 3. Anti-platelet therapy and statin therapy; pending MRI results 4. Lipid profile in the morning 5. MRI of the brain/echocardiogram/carotid Doppler are pending 6. Physically patient is doing well and may benefit more from outpatient physical therapy and inpatient rehab 7. Neurology consultation appreciated 8. Blood pressure has still been very labile and [id number]; adjust blood pressure medications 9. Neuro checks every 4 hr 10. GI and DVT prophylaxis Discharge Plan: Home Plan to discharge in: Greater than 2 days - Advance Directives Does patient have a Living Will: No Does patient have a Durable POA for Healthcare: No - Code Status/Comfort Care Code Status Assessed: Yes Code Status: Full Code Critical Care: No Time Spent Managing PTS Care (In Minutes): 45
[2021-02-09 12:02] VITALS: BP 154/94; TEMP 97.9
[2021-02-09] MEDS ORDERED: LOSARTAN/HCTZ 50-12.5 PO ONE (14:59)
== END 2021-02-09 12:48 | disposition home or self-care (01) | DRG 305 ==
LOC: ER 22:16 → ERHOLD 02-07 03:04 → 2ND 02-07 12:27
PROVIDERS: ADMIT Hospitalist; ATTEND Hospitalist
DX: I16.0 Hypertensive urgency (principal); R20.2 Paresthesia of skin; E83.39 Other disorders of phosphorus metabolism; I10 Essential (primary) hypertension; E87.6 Hypokalemia; Z88.5 Allergy status to narcotic agent; Z79.899 Other long term (current) drug therapy; Z20.822 Contact with and (suspected) exposure to COVID-19
CPT/HCPCS: 36415; 70450; 70496; 70498; 70544; 70549; 70553; 71045; 72125; 80048; 80053; 80061; 80076; 80307; 80320; 81003; 81025; 83735; 83880; 84100; 84132; 84439; 84443; 84484; 85025; 85610; 93005; 94760; 96374; 96375; 97116; 97161; 99285; A9577; J0360; J1200; J1650; Q9967; U0003

== ENCOUNTER 2022-05-11 07:23 | Emergency (ER) | payer OTHER, SELFPAY ==
--- OUTSIDE RECORDS SUMMARY | 2022-05-11 07:27 | XMS REPORT | Continuity of Care Document ---
:1975 Author Organization [facility] t Address [address] [facility] [address] [place] [address] Care Team Providers Name Role Phone CHRIS_Osmar Attending Clinician Unavailable Clovis Perez Attending Clinician [phone] CECIL GUERRA Attending Clinician Unavailable PATT Admitting Clinician Unavailable Payers Payer Name Policy Type Policy Number Effective Date Expiration Date S [facility] [id number] 2016 PPO 00:00:00 Problems This patient has no known problems. Allergies, Adverse Reactions, Alerts Allergy Allergy Status Severity Reaction(s) Onset Inactive Treating Comm ents Source Name Type Date Date Clinician HYDROCOD DRUG Active N/V 2016-03 [facility] INGREDI 0-09 ity of 00:00: [address] codeine DA Active [facility] 8-19 [place] 00:00: d 00 [facility] Social History Smoking Status Start Date Stop Date Source Never Smoker [facility] Medications Ordered Filled Start Stop Current Ordering Indication Dosage Frequency Signature Comments Components Source Medication Medication Date Date Medication? Clinician (SIG) Name Name B12 1ml IM B12 1ml IM No B12 1ml IM [place] Q weekly Q weekly 5-06 Q weekly Com [place] 00:[facility]: ty [facility] B12 1ml IM B12 1ml IM No B12 1ml IM [place] Q weekly Q weekly 5-06 Q weekly Com [place] 00:00: ty [facility] B12 1ml IM B12 1ml IM 2022-0 No B12 1ml IM [place] Q weekly Q weekly 5- Q weekly [facility] B12 1ml IM No B12 1ml IM [place] Q weekly Q weekly - Q weekly [facility] B12 1ml IM No B12 1ml IM [place] Q weekly Q weekly - Q weekly Com [facility] B12 1ml IM B12 1ml IM No B12 1ml IM [place] Q weekly Q weekly - Q weekly Com [facility] B12 1ml IM B12 1ml IM No B12 1ml IM [place] Q weekly Q weekly - Q weekly Com [facility] losartan 50 losartan 50 No losartan [place] mg tablet mg tablet 50 mg Comm uni tablet ty [facility] Asprin Ec Asprin Ec No 1 Q1D Asprin Ec [place] Low Dose 81 Low Dose 81 Low Dose Communi mg mg 81 mg ty tablet,aubree tablet,aubree tablet,del Hospita yed release yed release ayed l Take 1 Take 1 release Clinics tablet tablet Take 1 every day every day tablet by oral by oral every day route. route. by oral route. chlorthalid chlorthalid No chlorthali [place] one 25 mg one 25 mg done 25 mg Communi tablet tablet tablet ty [facility] Contrave 8 Contrave 8 No Contrave 8 [place] mg-90 mg mg-90 mg mg-90 mg Com thania tablet,exte tablet,exte tablet,ext ty nded nded ended Hospita release 1 release 1 release 1 l pill once a pill once a pill once Clinics day for 7 day for 7 a day for days days 7 days Depo-Command And Control Specialist Depo-Command And Control Specialist No Depo-Prove [place] a 150 mg/mL a 150 mg/mL ra 150 Communi intramuscul intramuscul mg/mL ty ar syringe ar syringe intramuscu Hospita lar l syringe Clinics losartan losartan No 1 Q1D losartan Swe royal 100 mg 100 mg 100 mg Communi tablet Take tablet Take tablet ty 1 tablet 1 tablet Take 1 Hospi ta every day every day tablet l by oral by oral every day Clin ics route. route. by oral route. losartan 25 losartan 25 No losartan [place] mg tablet mg tablet 25 mg Comm uni tablet [facility] losartan 50 losartan 50 No losartan [place] mg tablet mg tablet 50 mg Comm uni tablet [facility] Asprin Ec Asprin Ec No 1 Q1D Asprin Ec [place] Low Dose 81 Low Dose 81 Low Dose Communi mg mg 81 mg ty tablet,aubree tablet,aubree tablet,del Hospita yed release yed release ayed l Take 1 Take 1 release Clinics tablet tablet Take 1 every day every day tablet by oral by oral every day route. route. by oral route. chlorthalid chlorthalid No chlorthali [place] one 25 mg one 25 mg done 25 mg Communi tablet tablet tablet [facility] Contrave 8 Contrave 8 No Contrave 8 [place] mg-90 mg mg-90 mg mg-90 mg Com [facility]ia tablet,exte tablet,exte tablet,ext ty nded nded ended Hospita release 1 release 1 release 1 l pill once a pill once a pill once Clinics day for 7 day for 7 a day for days days 7 days Depo-Command And Control Specialist Depo-Command And Control Specialist No Depo-Prove [place] a 150 mg/mL a 150 mg/mL ra 150 Communi intramuscul intramuscul mg/mL ty ar syringe ar syringe intramuscu Hospita [facility] [address] l syringe Clinics losartan losartan No 1 Q1D losartan Swe royal 100 mg 100 mg 100 mg Communi tablet Take tablet Take tablet ty 1 tablet 1 tablet Take 1 Hospi ta every day every day tablet l by oral by oral every day Clin ics route. route. by oral route. losartan 25 losartan 25 No losartan [place] mg tablet mg tablet 25 mg Comm uni tablet [facility] losartan 50 losartan 50 No losartan [place] mg tablet mg tablet 50 mg Comm uni tablet [facility] Asprin Ec Asprin Ec No 1 Q1D Asprin Ec [place] Low Dose 81 Low Dose 81 Low Dose Communi mg mg 81 mg ty tablet,aubree tablet,aubree tablet,del Hospita yed release yed release ayed l Take 1 Take 1 release Clinics tablet tablet Take 1 every day every day tablet by oral by oral every day route. route. by oral route. Contrave 8 Contrave 8 No Contrave 8 [place] mg-90 mg mg-90 mg mg-90 mg Com [facility]ia tablet,exte tablet,exte tablet,ext ty nded nded ended Hospita release 1 release 1 release 1 l pill once a pill once a pill once Clinics day for 7 day for 7 a day for days days 7 days losartan losartan No 1 Q1D losartan Swe royal 100 mg 100 mg 100 mg Communi tablet Take tablet Take tablet ty 1 tablet 1 tablet Take 1 Hospi ta every day every day tablet l by oral by oral every day Clin ics route. route. by oral route. Asprin Ec Asprin Ec No 1 Q1D Asprin Ec [place] Low Dose 81 Low Dose 81 Low Dose Communi mg mg 81 mg ty tablet,aubree tablet,aubree tablet,del Hospita yed release yed release ayed l Take 1 Take 1 release Clinics tablet tablet Take 1 every day every day tablet by oral by oral every day route. route. by oral route. Contrave 8 Contrave 8 No Contrave 8 [place] mg-90 mg mg-90 mg mg-90 mg Com [place] tablet,exte tablet,exte tablet,ext ty nded nded ended Hospita release 1 release 1 release 1 l pill once a pill once a pill once Clinics day for 7 day for 7 a day for days days 7 days losartan losartan No 1 Q1D losartan Swe royal 100 mg 100 mg 100 mg Communi tablet Take tablet Take tablet ty 1 tablet 1 tablet Take 1 Hospi ta every day every day tablet l by oral by oral every day Clin ics route. route. by oral route. Asprin Ec Asprin Ec No 1 Q1D Asprin Ec [place] Low Dose 81 Low Dose 81 Low Dose Communi mg mg 81 mg ty tablet,aubree tablet,aubree tablet,del Hospita yed release yed release ayed l Take 1 Take 1 release Clinics tablet tablet Take 1 every day every day tablet by oral by oral every day route. route. by oral route. Contrave 8 Contrave 8 No Contrave 8 [place] mg-90 mg mg-90 mg mg-90 mg Com [facility] tablet,exte tablet,exte tablet,ext ty nded nded ended Hospita release 1 release 1 release 1 l pill once a pill once a pill once Clinics day for 7 day for 7 a day for days days 7 days losartan losartan No 1 Q1D losartan Swe royal 100 mg 100 mg 100 mg Communi tablet Take tablet Take tablet ty 1 tablet 1 tablet Take 1 Hospi ta every day every day tablet l by oral by oral every day Clin ics route. route. by oral route. Asprin Ec Asprin Ec No 1 Q1D Asprin Ec [place] Low Dose 81 Low Dose 81 Low Dose Communi mg mg 81 mg ty tablet,aubree tablet,aubree tablet,del Hospita yed release yed release ayed l Take 1 Take 1 release Clinics tablet tablet Take 1 every day every day tablet by oral by oral every day route. route. by oral route. chlorthalid chlorthalid No chlorthali [place] one 25 mg one 25 mg done 25 mg Communi tablet tablet tablet ty [facility] Cont[facility]ve 8 No Contrave 8 [place] mg-90 mg mg-90 mg mg-90 mg Com [place] tablet,exte tablet,exte tablet,ext ty nded nded ended Hospita release 1 release 1 release 1 l pill once a pill once a pill once Clinics day for 7 day for 7 a day for days days 7 days losartan losartan No 1 Q1D losartan Swe royal 100 mg 100 mg 100 mg Communi tablet Take tablet Take tablet ty 1 tablet 1 tablet Take 1 Hospi ta every day every day tablet l by oral by oral every day Clin ics route. route. by oral route. losartan 25 losartan 25 No losartan [place] mg tablet mg tablet 25 mg Comm uni tablet ty [facility] Asprin Ec Asprin Ec No 1 Q1D Asprin Ec [place] Low Dose 81 Low Dose 81 Low Dose Communi mg mg 81 mg ty tablet,aubree tablet,aubree tablet,del Hospita yed release yed release ayed l Take 1 Take 1 release Clinics tablet tablet Take 1 every day every day tablet by oral by oral every day route. route. by oral route. chlorthalid chlorthalid No chlorthali [place] one 25 mg one 25 mg done 25 mg Communi tablet tablet tablet ty [facility] 8 Contrave 8 No Contrave 8 [place] mg-90 mg mg-90 mg mg-90 mg Com thania tablet,exte tablet,exte tablet,ext ty nded nded ended Hospita release 1 release 1 release 1 l pill once a pill once a pill once Clinics day for 7 day for 7 a day for days days 7 days losartan losartan No 1 Q1D losartan Swe royal 100 mg 100 mg 100 mg Communi tablet Take tablet Take tablet ty 1 tablet 1 tablet Take 1 Hospi ta every day every day tablet l by oral by oral every day Clin ics route. route. by oral route. losartan 25 losartan 25 No losartan [place] mg tablet mg tablet 25 mg Comm uni tablet [facility] losartan 50 losartan 50 No losartan [place] mg tablet mg tablet 50 mg Comm uni tablet [facility] Asprin Ec Asprin Ec No 1 Q1D Asprin Ec [place] Low Dose 81 Low Dose 81 Low Dose Communi mg mg 81 mg ty tablet,aubree tablet,aubree tablet,del Hospita yed release yed release ayed l Take 1 Take 1 release Clinics tablet tablet Take 1 every day every day tablet by oral by oral every day route. route. by oral route. chlorthalid chlorthalid No chlorthali [place] one 25 mg one 25 mg done 25 mg Communi tablet tablet tablet [facility] Contrave 8 Contrave 8 No Contrave 8 [place] mg-90 mg mg-90 mg mg-90 mg Com [place] tablet,exte tablet,exte tablet,ext ty nded nded ended Hospita release 1 release 1 release 1 l pill once a pill once a pill once Clinics day for 7 day for 7 a day for days days 7 days Depo-Command And Control Specialist Depo-Command And Control Specialist No Depo-Prove [place] a 150 mg/mL a 150 mg/mL ra 150 Communi intramuscul intramuscul mg/mL ty ar syringe ar syringe intramuscu Hospita lar l syringe Clinics losartan losartan No 1 Q1D losartan Swe royal 100 mg 100 mg 100 mg Communi tablet Take tablet Take tablet ty 1 tablet 1 tablet Take 1 Hospi ta every day every day tablet l by oral by oral every day Clin ics route. route. by oral route. losartan 25 losartan 25 No losartan [place] mg tablet mg tablet 25 mg Comm uni tablet [facility] Vital Signs Vital Name Observation Time Observation Value Comments Source BP Diastolic 2022-03-15 00:00:00 96 mm[Hg] [facility] s Height 2022-03-15 00:00:00 66 [in_i] [facility] s BMI (Body Mass 2022-03-15 00:00:00 29.4 kg/m2 [facility] s BP Systolic 2022-03-15 00:00:00 145 mm[Hg] [facility] s Body Weight 2022-03-15 00:00:00 2912 [oz_av] [facility] s BP Diastolic 2021-09-08 00:00:00 94 mm[Hg] [facility] s Height 2021-09-08 00:00:00 66 [in_i] [facility] s BMI (Body Mass 2021-09-08 00:00:00 29.5 kg/m2 [facility]) [facility] s BP Systolic 2021-09-08 00:00:00 143 mm[Hg] [facility] s Body Weight 2021-09-08 00:00:00 2928 [oz_av] [facility] s BP Diastolic 2021-08-16 00:00:00 90 mm[Hg] [facility] s Height 2021-08-16 00:00:00 66 [in_i] [facility] s BMI (Body Mass 2021-08-16 00:00:00 29.4 kg/m2 [facility]) [facility] s BP Systolic 2021-08-16 00:00:00 129 mm[Hg] [facility] s Body Weight 2021-08-16 00:00:00 2912 [oz_av] [facility] s BP Diastolic 2021-08-09 00:00:00 92 mm[Hg] [facility] s Height 2021-08-09 00:00:00 66 [in_i] [facility] s BMI (Body Mass 2021-08-09 00:00:00 29.1 kg/m2 [facility]) [facility] s BP Systolic 2021-08-09 00:00:00 137 mm[Hg] [facility] s Body Weight 2021-08-09 00:00:00 2880 [oz_av] [facility] s BP Diastolic 2021-07-29 00:00:00 98 mm[Hg] [facility] s Height 2021-07-29 00:00:00 66 [in_i] [facility] s BMI (Body Mass 2021-07-29 00:00:00 29.2 kg/m2 [facility]) Hospital Clinic s BP Systolic 2021-07-29 00:00:00 149 mm[Hg] [facility] s Body Weight 2021-07-29 00:00:00 2896 [oz_av] [facility] s BP Diastolic 2021-07-21 00:00:00 101 mm[Hg] [facility] s Height 2021-07-21 00:00:00 66 [in_i] [facility] s BMI (Body Mass 2021-07-21 00:00:00 28.9 kg/m2 [facility]) [facility] s BP Systolic 2021-07-21 00:00:00 170 mm[Hg] [facility] s Body Weight 2021-07-21 00:00:00 2865.6 [oz_av] [facility] s BP Diastolic 2021-07-15 00:00:00 94 mm[Hg] [facility] s Height 2021-07-15 00:00:00 66 [in_i] [facility] s BMI (Body Mass 2021-07-15 00:00:00 28.8 kg/m2 [facility]) Hospital Clinic s BP Systolic 2021-07-15 00:00:00 148 mm[Hg] [facility] s Body Weight 2021-07-15 00:00:00 2850.4 [oz_av] [facility] s Procedures This patient has no known procedures. Encounters Start End Encounter Admission Attending Care Care Encounter Source Date/Time Date/Time Type Type Clinicians Facility Department ID 2022-05-03 2022-05-03 Outpatient SFA [id number] [place] 17:17:22 17:17:22 [id number] F Guy 2022-04-20 2022-04-20 Outpatient SISSON_C [facility] [id number] [place] 00:00:00 00:00:00 0209 [facility] i [facility] Clin[facility] 2022-04-17 2022-04-17 Outpatient SFA SFA [id number] [place] 17:25:11 17:25:11 [id number] F Eulogio 2022-03-18 2022-03-18 Outpatient [facility]SON_C [facility] [id number] [place] 00:00:00 00:00:00 0107 Commun i ty Hospita [facility] Clinics 2022-03-15 2022-03-15 Outpatient [facility]SON_C [facility] [id number] [place] 00:00:00 00:00:00 0104 Commun i ty Hospita l Clinics 2022-03-15 2022-03-15 [facility] [place] 04 [place] 00:00:00 00:00:00 Chris [facility] MSN, CHEMICAL PROCESSOR, Hospital - ty [place]: [address] [place] [facility], [facility], Clinic s [address], [facility] [address], [place]anya [place], [place] MSN, [place] [phone] , Ph. 2022-03-14 2022-03-14 Outpatient SISSON_C [facility] [id number] [place] 00:00:00 00:00:00 0103 Commun i ty [facility]osp[facility] Clinics 2022-03-02 2022-03-02 Outpatient SFA SFA [id number] [place] 14:55:49 14:55:49 [id number] F Eulogio 2022-02-06 2022-02-06 Outpatient SFA SFA [id number] [place] 16:14:46 16:14:46 [id number] F Eulogio 2022-01-30 2022-01-30 Outpatient SFA SFA [id number] [place] 17:36:57 17:36:57 [id number] F Eulogio 2021-09-08 2021-09-08 Outpatient SISSON_C [facility] [id number] [place] 12:42:00 12:42:00 0630 Commun i ty Hospita l [facility] 2021-09-08 2021-09-08 [facility] [place] 00:00:00 00:00:00 Chris [facility] MSN, CHEMICAL PROCESSOR, Hospital - ty [place]: [address] [place] [facility] [address] [facility], Clinic s [address], [place] [address], [place]anya [place], [place] MSN, [place] [phone] , Ph. 2021-09-08 2021-09-08 Outpatient Chris [facility] [id number] 00:00:00 00:00:00 [place] [id number] 2021-08-30 2021-08-30 Outpatient SISSON_C [facility] [id number] [place] 03:41:00 03:41:00 0621 Commun i ty Hospita l [facility] 2021-08-30 2021-08-30 [facility] [place] 00:00:00 00:00:00 Chris [facility] MSN, CHEMICAL PROCESSOR, Hospital - ty [place]: [address] [place] [facility], Clinic s [address], [place] [address], [place], [place] MSN, [place] [id number] , Ph. 2021-08-30 2021-08-30 Outpatient Chris, [facility] [id number] 00:00:00 00:00:00 [place] [id number] 2021-08-16 2021-08-16 Outpatient SISSON_C [facility] [id number] [place] 03:40:00 03:40:00 0607 Commun i ty Hospita l [facility] 2021-08-16 2021-08-16 Outpatient Chris, [facility] [id number] 00:00:00 00:00:00 [place] [id number] 2021-08-16 2021-08-16 [facility] [place] 00:00:00 00:00:00 Chris, [facility] MSN, CHEMICAL PROCESSOR, Hospital - ty [place]: [address] [place] [facility], Clinic s [address], [place] [address], [place], [place] MSN, [place] [id number] , Ph. 2021-08-09 2021-08-09 Outpatient SISSON_C [facility] [id number] [place] 02:37:00 02:37:00 0531 Commun i ty Hospita l [facility] 2021-08-09 2021-08-09 Outpatient Chris [facility] [id number] 00:00:00 00:00:00 [place] [id number] 2021-08-09 2021-08-09 [facility] [place] 00:00:00 00:00:00 Chris [facility] MSN, CHEMICAL PROCESSOR, Hospital - ty [place]: [address] [place] [facility], Clinic s [address], [facility] [address], [place], [place]N, [place] [phone] , Ph. 2021-07-29 2021-07-29 Outpatient SISSON_C [facility] [id number] [place] 10:03:00 10:03:00 0520 Commun i ty Hospita l Clinics 2021-07-29 2021-07-29 Outpatient Chris [facility] [id number] 00:00:00 00:00:00 [place] [id number] 2021-07-29 2021-07-29 [facility] [place] 00:00:00 00:00:00 Chris, [facility] Comm uni MSN, CHEMICAL PROCESSOR, Hospital - ty [place]: [address] [place] [facility] [facility], Clinic s [address], [place] [address], [place], [place], [place] [phone] , Ph. 2021-07-21 2021-07-21 Outpatient SISSON_C [facility] [id number] [place] 12:23:00 12:23:00 0512 Commun i ty Hospita [facility] 2021-07-21 2021-07-21 [facility] [id number] 00:00:00 00:00:00 [place] [id number] 2021-07-21 2021-07-21 [facility] [place] 00:00:00 00:00:00 Chris, [facility] Comm uni MSN, CHEMICAL PROCESSOR, Hospital - ty [place]: [address] [place] [facility], Clinic s [address], [place] [address], [place], [place]N, [place] [phone] , Ph. 2021-07-15 2021-07-15 Outpatient SISSON_C [facility] [id number] [place] 12:45:00 12:45:00 0506 Commun i ty Hospita [facility] 2021-07-15 2021-07-15 [facility] [place] 00:00:00 00:00:00 Chris, [facility] Comm uni MSN, CHEMICAL PROCESSOR, Hospital - ty [place]: [address] [place] [facility] [address] N. [facility], Clinic s [address], [place] [address], [place], [place]N, [place] [phone] , Ph. 2021-07-15 2021-07-15 Outpatient Chris, [facility] [id number] 00:00:00 00:00:00 [place] [id number] 2021-02-23 2021-02-23 Outpatient CHRIS_Osmar [facility] 2020 [place] 11:43:00 11:43:00 [id number] Commun i ty Hospita l [facility] 2019-11-18 2019-11-18 [facility] [id number] [facility] 10:00:00 10:00:00 CECIL [id number] [facility] 2019-11-18 2019-11-18 Outpatient R CHARLIE[facility] [id number] [facility] 10:00:00 10:00:00 CECIL [facility] Results Test Description Test Time Test Comments Results Result Comments Source CULTURE, URINE 2022-05-05 SPECIMEN NUMBER: 07:26:30 [id number] CULTURE, URINE SPECIMEN NUMBER: [id number] SPECIMEN COMMENT: URINE SOURCE: URINE REPORT STATUS: FINAL FINAL REPORT: 05/05/2022 <10,000 CFU/ML UROGENITAL PIPO PRESENT NO COMMON PATHOGENS [facility] has important pathology staff changes effective 05/10/2022. New pathology staff will provide uninterrupted, excellent patient care and clinical consultation. See URL: [email or web address]. UNLESS OTHERWISE INDICATED, ALL TESTING PERFORMED AT [facility] [address] [address] MEASUREMENT SPECIALIST: RAINER JENKINS M.D. CLIA NUMBER [id number] [facility] [place]. [id number] HEMOGLOBIN A1c 2021-07-14 04:33:22 Test Item Value Reference Range Interpretation Comme nts HEMOGLOBIN A1c (test code = 93413) 5.3 % 4.2-5.6 CBC W/AUTO DIFF WITH [id number] 03:27:18 Test Item Value Reference Range Interpretation Comments WBC (test code = 10.9 K/UL 3.5-11.0 1001) RBC (test code = 4.54 M/UL 3.80-5.40 1002) HEMOGLOBIN (test code 14.1 G/DL 11.5-15.5 = 1003) HEMATOCRIT (test code 39.8 % 34.0-45.0 = 1004) MCV (test code = 87.7 fL 80.0-99.0 1005) MCH (test code = 31.1 PG 25.0-33.0 1006) MCHC (test code = 35.4 G/DL 31.0-36.0 1007) RDW (test code = 12.2 % 11.5-15.0 1038) NEUTROPHILS (test 63.6 % code = 1008) LYMPHOCYTES (test 27.6 % code = 1010) MONOCYTES (test code 6.1 % = 1011) EOSINOPHILS (test 1.7 % code = 1012) BASOPHILS (test code 0.5 % = 1013) IMMATURE GRANULOCYTES 0.5 % (test code = 1036) NUCLEATED RBCS (test 0.0 /100 WBC'S See_Comment [Aut omated code = 1065) message] The sy stem which generated this result transmitted reference range : 0.0. The refere nce range was not u sed to interpret th is result as normal/abnormal . PLATELET COUNT (test 313 K/UL 130-400 code = 1015) ABSOLUTE NEUTROPHILS 6.92 K/UL 1.50-7.50 (test code = 1066) ABSOLUTE LYMPHOCYTES 2.99 K/UL 1.00-4.00 (test code = 1067) ABSOLUTE MONOCYTES 0.66 K/UL 0.20-1.00 (test code = 1068) ABSOLUTE EOSINOPHILS 0.18 K/UL 0.00-0.50 (test code = 1040) ABSOLUTE BASOPHILS 0.05 K/UL 0.00-0.20 (test code = 1069) ABS IMMATURE 0.05 K/UL 0.00-0.10 GRANULOCYTES (test code = 1020) ABS NUCLEATED RBCS 0.00 K/UL 0.00-0.11 (test code = 25190) HEPATITIS PANEL, [id number] 03:12:31 Test Item Value Reference Range Interpretation Comments HEPATITIS A IgM (test NON-REACTIVE NON-REACTIVE code = 95530) HEPATITIS B CORE IgM NON-REACTIVE NON-REACTIVE (test code = 4644) HEPATITIS B SURF AG NON-REACTIVE NON-REACTIVE (test code = 2739) HEPATITIS C ANTIBODY NON-REACTIVE NON-REACTIVE (test code = 4675) INTERPRETATION (NOTE) Hepatitis A HEPATITIS A: (test code sero logy shows no = 6072) evidence of acu te hepatitis A. INTERPRETATION (NOTE) Hepatitis B HEPATITIS B: (test code sero logy shows no = 04334) evidence of acu te hepatitis B and no indication of exposure to hepatitis B vir us in the previous yo eight months. INTERPRETATION (NOTE) Hepatitis C HEPATITIS C: (test code sero logy shows no = 84520) evidence of exposure to hepatitisC viru s at this time. I t can take up to 12 months after exposure tothe hepatitis C vir us for antibodies to become detectab le in the blood in certain patient s. HIV 1/2 4TH GEN, RFLX [id number] 03:12:31 Test Item Value Reference Range Interpretation Comments HIV 1/2 4TH GEN, NON-REACTIVE NON-REACTIVE UNLESS OTH ERWISE RFLX CONF (test INDICATED, A LL TESTING code = 3514) PERFORMED [facility] [employer] [address] [place] [id number] [place] [address] DIRECTOR: RAINER JENKINS M.D. CLIA NUMBER [id number] CAP ACCREDITATION N O. [id number] COMPREHENSIVE METABOLIC [id number] 03:03:00 Test Item Value Reference Range Interpretation Comments GLUCOSE (test code = 85 MG/DL 70-99 2216) BUN (test code = 15 MG/DL 6-20 2207) CREATININE (test 0.75 MG/DL 0.60-1.30 code = 2214) eGFR (2020 CKD-EPI) 99 ML/MIN/1.73 >60 (test code = 54305) CALC BUN/CREAT (test 20 RATIO 6-28 code = 2235) SODIUM (test code = 143 MEQ/L 958-415 9325) POTASSIUM (test code 3.1 MEQ/L 3.5-5.4 L = 2228) CHLORIDE (test code 99 MEQ/L 95-107 = 2215) CARBON DIOXIDE (test 27 MEQ/L 19-31 code = 2206) CALCIUM (test code = 10.5 MG/DL 8.5-10.5 2208) PROTEIN, TOTAL (test 7.5 G/DL 6.1-8.3 code = 2229) ALBUMIN (test code = 4.8 G/DL 3.5-5.2 2200) CALC GLOBULIN (test 2.7 G/DL 1.9-3.7 code = 2240) CALC A/G RATIO (test 1.8 RATIO 1.0-2.6 code = 2234) BILIRUBIN, TOTAL 0.4 MG/DL See_Comment [Automated message] (test code = 2207) The syste m which generated this result transmit yeyo reference range : <=1.2. The refe rence range was not u sed to interpret th is result as normal/abnormal . ALKALINE PHOSPHATASE 68 U/L 40-118 (test code = 2204) AST (test code = 17 U/L 9-40 2217) ALT (test code = 19 U/L 5-40 2218) LIPID [id number] 03:03:00 Test Item Value Reference Range Interpretation Comments CHOLESTEROL (test 161 MG/DL <200 code = 2210) TRIGLYCERIDES (test 135 MG/DL <150 code = 2232) HDL CHOLESTEROL (test 46 MG/DL >39 code = 2220) CALC LDL CHOL (test 92 MG/DL <100 NOTE: C ALCULATED LDL code = 2237) IS BASED ON [place] METHOD WHICHINCLUDES ADJUSTABLE TRIGLYCERIDE:VL DL CHOLESTEROL RAT IO.THIS FACTOR VARIES B Y MEASURED TRIGLY CERIDE AND NON-HDLCHOL ESTEROL CONCENTRATIONS WITH INCREASED CALCU LATED LDL SEENIN HIGH ER TRIGLYCERIDE OR LOWER NON-HDL SPECIME NS. FOR MOREINFORMATION , SEE CLIENT ANNOUNCE MENT AT [email or web address] [email or web address] LDL/HDL 2.00 RATIO <3.22 (test code = 2238) TSH, THIRD [id number] 06:46:11 Test Item Value Reference Range Interpretation Comments TSH, THIRD GENERATION (test code 2.280 UIU/ML 0.400-4.100 = 2821) COMPREHENSIVE METABOLIC [id number] 05:32:14 Test Item Value Reference Range Interpretation Comments GLUCOSE (test code = 81 MG/DL 70-99 2216) BUN (test code = 12 MG/DL 08-29) CREATININE (test 0.70 MG/DL 0.60-1.30 code = 2214) eGFR (2020 CKD-EPI) 108 >60 (test code = 37048) ML/MIN/1.73 CALC BUN/CREAT (test 17 RATIO 09-06 code = 2235) SODIUM (test code = 142 MEQ/L 650-209 3978) POTASSIUM (test code 3.1 MEQ/L 3.5-5.4 L = 2228) CHLORIDE (test code 101 MEQ/L 95-107 = 2215) CARBON DIOXIDE (test 25 MEQ/L 19-31 code = 2206) CALCIUM (test code = 10.0 MG/DL 8.5-10.5 2208) PROTEIN, TOTAL (test 7.5 G/DL 6.1-8.3 code = 2229) ALBUMIN (test code = 4.7 G/DL 3.5-5.2 2200) CALC GLOBULIN (test 2.8 G/DL 1.9-3.7 code = 2240) CALC A/G RATIO (test 1.7 RATIO 1.0-2.6 code = 2234) BILIRUBIN, TOTAL 0.5 MG/DL See_Comment [Automated message] (test code = 2207) The [employer] which generated this result transmitted ref erence range: <=1.2. T he reference range was not used to int erpret this result as normal/abnormal . ALKALINE PHOSPHATASE 67 U/L 40-118 (test code = 2204) AST (test code = 17 U/L 9-40 2217) ALT (test code = 19 U/L 5-40 UNLESS OTH ERWISE 2218) INDICATED, ALL TESTING PERFORM [facility] [address] [place] [address] [facility] DIRECTOR: RAINER JENKINS M.D. CLIA NUMBER [id number] CAP ACCREDITATION N O. [id number]
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
[2022-05-11 08:09] LABS: Absolute Lymphocytes (CBC) 1.9 K/uL (0.7-4.9); Hematocrit 39.5 % (36.0-45.0); Lymphocytes % 21.6 % (15.3-44.8); MCV 87.9 fL (80-100); MPV 8.6 fL (7.6-11.3); RBC Red Blood Cell Count 4.49 M/uL (3.86-4.86)
[2022-05-11 08:45] LABS: Protime INR 1.12
[2022-05-11 08:56] LABS: Troponin High Sensitivity 8.2 pg/mL (<58.9)
[2022-05-11 08:58] LABS: Potassium 2.6 mmol/L (3.5-5.1)
[2022-05-11] MEDS ORDERED: KCL 20 MEQ/100 mL IVPB 100 ML IV ONE (09:25)
[2022-05-11] MEDS ORDERED: NA CHLORIDE 0.9% 1,000 ML ONE (09:25)
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
[2022-05-11 12:24] VITALS: TEMP 97.8; O2SAT 100
[2022-05-11 12:29] VITALS: BP 139/95
--- NOTE | 2022-05-11 17:25 | EKG ---
Test Date: 2022-05-11 Test Time: 07:45:53 Field Training Manager: SINAN MEASUREMENT RESULTS: Intervals: Rate: 91 UT: 160 QRSD: 86 QT: 370 QTc: 455 [place]: P: 44 UT: 160 QRS: 34 T: 8 INTERPRETIVE STATEMENTS: Normal sinus rhythm Possible Left atrial enlargement ST abnormality, possible digitalis effect Abnormal ECG Compared to ECG 02/07/2021 21:43:59 ST (T wave) deviation now present Myocardial infarct finding no longer present T-wave abnormality no longer present Possible ischemia no longer present Electronically Signed On 05-11-22 17:25:12 DIRECTOR EXPORT by Jason Burgos
== END 2022-05-11 11:56 | disposition home or self-care (01) ==
LOC: ER 07:23
DX: R51.9 Headache, unspecified (principal); E87.6 Hypokalemia; V49.49XA Driver injured in collision with other motor vehicles in traffic accident, initial encounter
CPT/HCPCS: 96365; 93005; 85025; 80048; 36415; 85610; 85730; 84484; 70450; 72125; 71260; 74177; 99284; 96366; Q9967; J3480; J7030